=== PATIENT | female | born 1955 | race Caucasian/White ===

== ENCOUNTER → 2017-01-28 | Outpatient (CLI) | payer OTHER ==
[2016-12-29 12:06] VITALS: BP 137/74
[~2017-01-28] MED LIST: CALC1TAB PO; DESM10SP6 NS; FOLI1TAB35 PO; FURO20TA3 PO; HYDR-3074 PO; HYDR10TA PO; LEVO88TA4 PO; METO-313 PO; METO100T11 PO; MIRA50TA PO; WHEA1POW5 PO
--- NOTE | 2017-01-28 11:19 | RAD ---
Left chest wall ultrasound, 01/28/2017: History: Lump The area of clinical concern in the upper chest wall near the midline was scanned. No cystic or solid mass was identified. If clinical concern persists, CT scanning is suggested for further evaluation. Left axillary ultrasound, 01/28/2017: An additional separate area of reported palpable concern in the left axilla was carefully scanned. No cystic or solid mass is identified. Again, CT scanning may be useful for further evaluation, if clinically indicated.
--- NOTE | 2017-01-28 11:44 | RAD ---
Indication follow-up. Abnormal renal sonogram previously. Grayscale imaging targeted to the kidneys was performed. Note is made of a previous examination one month ago. The right kidney measures approximately 11.5 x 3.4 x 4.3 cm. No hydronephrosis or discrete mass is seen. The left kidney measures 10 x 4.8 x 4.6 cm and appears unremarkable showing no evidence of hydronephrosis or mass. A bladder diverticulum is noted as demonstrated on the CT examination 12/28/2016 IMPRESSION: No hydronephrosis or mass seen associated with either kidney. Urinary bladder diverticula
== END | disposition home or self-care (01) ==
LOC: US 13:08
PROVIDERS: ATTEND Family Medicine
DX: N63 Unspecified lump in breast (principal); N32.3 Diverticulum of bladder
CPT/HCPCS: 76604; 76641; 76770

== ENCOUNTER → 2017-02-03 | Outpatient (CLI) | payer OTHER ==
[2016-12-29 12:06] VITALS: BP 137/74
[~2017-02-03] MED LIST changes: +IOHEXOL 300 MG/ML 75 ML VIAL IV ONE
--- NOTE | 2017-02-03 10:07 | RAD ---
CT chest with contrast 02/03/2017 at 0900 hours Indication: Left-sided anterior chest wall mass Comparison: CT abdomen/pelvis 12/28/2016 Technique: Multiple axial CT images of the chest were obtained after the administration of intravenous contrast. Coronal and sagittal reformats are provided. 60 mL of Omnipaque 300 was administered intravenously. Findings: Right thyroid lobe has a 12 millimeter nodule in the inferior gland. There are no enlarged axillary, mediastinal or hilar lymph nodes. Heart size is within normal limits. Thoracic aorta is normal in course and caliber. No pericardial effusion. There are no pulmonary infiltrates or pleural effusions. No suspicious noncalcified pulmonary nodules. Healing left anterolateral rib fractures identified from ribs 3 through 6. No pneumothorax. A large hiatal hernia is present. Nephrogram phase of the kidneys limits evaluation, however there is no definite hypoperfusion at this time. Impression: 1. Healing left-sided anterolateral third through sixth rib fractures. Correlated with recent traumatic injury. No overlying hematoma is present. 2. Large hiatal hernia, stable. 3. 12 mm hypodense nodule in the inferior right thyroid gland. This may be further assessed with thyroid ultrasound. PQRS Compliance Statement: One or more of the following individualized dose reduction techniques were utilized for this examination: 1. Automated exposure control 2. Adjustment of the mA and/or kV according to patient size 3. Use of iterative reconstruction technique
== END | disposition home or self-care (01) ==
LOC: CT 08:37
PROVIDERS: ATTEND Nurse Practitioner
DX: R22.2 Localized swelling, mass and lump, trunk (principal)
CPT/HCPCS: 71260; Q9967

== ENCOUNTER → 2017-02-21 | Outpatient (CLI) | payer OTHER ==
[2016-12-29 12:06] VITALS: BP 137/74
[~2017-02-21] MED LIST changes: -IOHEXOL 300 MG/ML 75 ML VIAL IV ONE
--- NOTE | 2017-02-21 08:52 | RAD ---
Thyroid ultrasound 02/21/2017 Clinical indication: Possible thyroid nodule. Comparison: CT chest February 03, 2017. Findings: Right lobe of the thyroid measures 3.6 x 1.2 x 1.2 cm. Maximal AP thickness of the isthmus is 0.3 cm. Left lobe of the thyroid measures 3.3 x 1.3 x 0.9 cm. There is no discrete thyroid nodule. Impression: Normal sonographic appearance of the thyroid without discrete nodule.
== END | disposition home or self-care (01) ==
LOC: US 07:51
PROVIDERS: ATTEND Nurse Practitioner
DX: E04.1 Nontoxic single thyroid nodule (principal)
CPT/HCPCS: 76536

== ENCOUNTER → 2017-03-17 | Outpatient (CLI) | payer OTHER ==
[2016-12-29 12:06] VITALS: BP 137/74
--- NOTE | 2017-03-17 16:36 | RAD ---
Bilateral lower extremity venous ultrasound, 03/17/2017 History: Bilateral leg pain and swelling Duplex evaluation of the deep veins in the lower extremities was performed including grayscale, color-flow and spectral Doppler analysis. The femoral and popliteal veins demonstrate normal compressibility and normal responses to distal augmentation maneuvers. Color imaging of those vessels shows no evidence of intraluminal clot. The visualized deep veins in both calves are patent. IMPRESSION: There is no sonographic evidence of deep vein thrombosis in either lower extremity.
== END | disposition home or self-care (01) ==
LOC: US 14:01
PROVIDERS: ATTEND Nurse Practitioner
DX: M79.604 Pain in right leg (principal); M79.605 Pain in left leg; M79.89 Other specified soft tissue disorders
CPT/HCPCS: 93970

== ENCOUNTER 2017-06-18 19:38 | Emergency (ER) | payer OTHER ==
[~2017-06-18] VITALS: Ht 162.6 cm; Wt 87.1 kg
[~2017-06-18 19:38] MED LIST changes: +METO-247 PO; -METO100T11 PO
--- NOTE | 2017-06-18 19:51 | PHYS DOC ---
Past Medical History Past Medical History: Hypertension, Hypothyroid Past Surgical History: Other Additional Past Surgical Histo: unknown at this time, pt is non verbal Alcohol Use: None Drug Use: None Adult General Chief Complaint Chief Complaint: HEADACHE HPI HPI Patient is a 62 year old female presenting to the emergency department for evaluation of multiple complaints including cough congestion runny nose headache generalized malaise and fatigue. All of the symptoms have been going on for approximately one week and she says her cough is productive of a yellowish sputum. She says that she has been taking ibuprofen and Tylenol for pain but her headache is quite concerning to her she says that she has a history of a brain tumor and traumatic brain injury. Patient denies any fevers chills nausea vomiting neck stiffness worsening confusion unilateral weakness numbness or tingling. Patient is in no obvious distress with normal vital signs. Review of Systems Review of Systems Constitutional: Denies fever or chills [] Eyes: Denies change in visual acuity, redness, or eye pain [] HENT: + nasal congestion, sore throat [] Respiratory: + cough. No shortness of breath [] Cardiovascular: No additional information not addressed in HPI [] GI: Denies abdominal pain, nausea, vomiting, bloody stools or diarrhea [] : Denies dysuria or hematuria [] Musculoskeletal: Denies back pain or joint pain [] Integument: Denies rash or skin lesions [] Neurologic: + headache. No focal weakness or sensory changes [] All other systems were reviewed and found to be within normal limits, except as documented in this note. Current Medications Current Medications Current Medications Medications (Trade) Dose Ordered Sig/Nidia Start Time Stop Time Status Last Admin Dose Admin Acetaminophen/ Hydrocodone Bitart (Lortab 5/325) 1 tab 1X ONCE 06/18/17 20:15 06/18/17 20:16 DC Albuterol/ Ipratropium (Duoneb) 3 ml 1X ONCE 06/18/17 20:15 06/18/17 20:16 DC 06/18/17 20:27 3 ML Dexamethasone (Decadron) 6 mg [id number] 06/18/17 20:15 Allergies Allergies Allergies Coded Allergies Type Severity Reaction Last Updated Verified codeine Allergy Intermediate Hives 06/18/17 Yes Physical Exam Physical Exam Constitutional: Well developed, well nourished, no acute distress, non-toxic appearance. [] HENT: Normocephalic, atraumatic, bilateral external ears normal, oropharynx moist, no oral exudates, nose normal. [] Eyes: PERRLA, EOMI, conjunctiva normal, no discharge. [] Neck: Normal range of motion, no tenderness, supple, no stridor. [] Cardiovascular:Heart rate regular rhythm, no murmur [] Lungs & Thorax: Bilateral breath sounds clear to auscultation [] Abdomen: Bowel sounds normal, soft, no tenderness, no masses, no pulsatile masses. [] Skin: Warm, dry, no erythema, no rash. [] Back: No tenderness, no CVA tenderness. [] Extremities: No tenderness, no cyanosis, no clubbing, ROM intact, no edema. [] Neurologic: Alert and oriented X 3, normal motor function, normal sensory function, no focal deficits noted. [] Current Patient Data Vital Signs Vital Signs Date Time Temp Pulse Resp B/P (MAP) Pulse Ox O2 Delivery O2 Flow Rate FiO2 06/18/17 20:31 Room Air 06/18/17 20:28 99 06/18/17 19:50 98.4 94 22 127/61 (83) 98.4 EKG EKG [] Radiology/Procedures Radiology/Procedures EXAM: Head CT without contrast. HISTORY: Headache. TECHNIQUE: Computed tomographic images of the head were obtained without contrast. *One or more of the following individualized dose reduction techniques were utilized for this examination: 1. Automated exposure control. 2. Adjustment of the mA and/or kV according to patient size. 3. Use of iterative reconstruction technique. COMPARISON: 12/28/2016. FINDINGS: There are stable right frontotemporal craniotomy changes. There is hypodensity within the cerebral white matter, likely due to chronic small vessel disease. There is cerebral and cerebellar volume loss. There is no acute or subacute hemorrhage. There is no mass effect or midline shift. There is no hydrocephalus. There is an expanded and empty or partially empty sella. There is moderate left maxillary sinus mucosal thickening with a small air-fluid level. There is moderate ethmoid sinus mucosal thickening. The mastoid air cells are clear. There is a stable tiny focus of fat along the posterior falx IMPRESSION: 1. No acute intracranial finding. 2. Subtle areas of hypodensity within the cerebral white matter, likely due to chronic small vessel disease. 3. Stable right frontotemporal craniotomy changes. 4. Stable expanded and empty or partially empty sella. 4. Left maxillary and bilateral ethmoid sinus disease. Electronically signed by: Olivia Gonzalez MD (06/18/2017 8:34 PM) [facility] DICTATED and SIGNED BY: OLIVIA GONZALEZ MD DATE: 06/18/17 2030 Course & Med Decision Making Course & Med Decision Making Patient presenting to the emergency department for evaluation of upper respiratory symptoms. I did not see any signs of pneumonia on chest x-ray but she does have sinus disease on her head CT. Patient appears well with normal vital signs benign physical exam and workup so she'll be discharged with instructions to use ibuprofen and Nasonex [id number] in addition to prescription [place] albuterol and Zithromax follow with her primary care provider in 3-5 days and come back to the ED sooner with worsening pain fevers vomiting or other general concerns. Patient aware and agreeable with plan and verbalized understanding of the above instructions. Dragon Disclaimer Dragon Disclaimer This electronic medical record was generated, in whole or in part, using a voice recognition dictation system. Departure Departure Impression: Primary Impression: URI (upper respiratory infection) Additional Impressions: Sinusitis Headache Disposition: 01 HOME, SELF-CARE Condition: STABLE Referrals: WYATT FULLER (PCP) Patient Instructions: Upper Respiratory Infection, Adult Additional Instructions: TAKE 400MG OF IBUPROFEN EVERY 6 HOURS AND THE NORCO FOR BREAKTHROUGH PAIN. USE OTC NASONEX FOR YOUR SINUS CONGESTION. FOLLOW WITH YOUR PCP IN 3-5 DAYS TO ENSURE IMPROVEMENT AND COME BACK TO THE ED SOONER WITH ANY NEW OR WORSENING PAIN , SOA, OR OTHER GENERAL CONCERNS. THANK YOU! Scripts Azithromycin (ZITHROMAX) 250 Mg Tablet 1 PKG PO UD, #6 TAB Prov: DANUTA GREEN DO 06/18/17 Albuterol Sulfate (PROAIR HFA INHALER) 8.5 Gm Hfa.aer.ad 1 PUFF INH Q4HRS Y for SHORTNESS OF BREATH, #1 INHALER 0 Refills Prov: DANUTA GREEN DO 06/18/17 Hydrocodone/Apap 5-325 (NORCO 5-325 TABLET) 1 Each Tablet 1 TAB PO PRN Q6HRS Y for PAIN, #14 TAB 0 Refills Prov: DANUTA GREEN DO 06/18/17 Problem Qualifiers Primary Impression: URI (upper respiratory infection) URI type: unspecified URI Qualified Codes: J06.9 - Acute upper respiratory infection, unspecified DANUTA GREEN DO Jun 18, 2017 19:51
[2017-06-18] MEDS ORDERED: DEXAMETHASONE 4 MG TABLET PO SCH (20:15)
[2017-06-18] MEDS ORDERED: IPRATRPIUM/ALBUTEROL 0.5/2.5MG 3 ML NEBU. NEB ONE (20:15)
[2017-06-18] MEDS ORDERED: HYDROcodone/APAP 5/325MG 1 TAB TABLET PO ONE (20:15)
--- NOTE | 2017-06-18 20:37 | RAD ---
EXAM: Head CT without contrast. HISTORY: Headache. TECHNIQUE: Computed tomographic images of the head were obtained without contrast. *One or more of the following individualized dose reduction techniques were utilized for this examination: 1. Automated exposure control. 2. Adjustment of the mA and/or kV according to patient size. 3. Use of iterative reconstruction technique. COMPARISON: 12/28/2016. FINDINGS: There are stable right frontotemporal craniotomy changes. There is hypodensity within the cerebral white matter, likely due to chronic small vessel disease. There is cerebral and cerebellar volume loss. There is no acute or subacute hemorrhage. There is no mass effect or midline shift. There is no hydrocephalus. There is an expanded and empty or partially empty sella. There is moderate left maxillary sinus mucosal thickening with a small air-fluid level. There is moderate ethmoid sinus mucosal thickening. The mastoid air cells are clear. There is a stable tiny focus of fat along the posterior falx IMPRESSION: 1. No acute intracranial finding. 2. Subtle areas of hypodensity within the cerebral white matter, likely due to chronic small vessel disease. 3. Stable right frontotemporal craniotomy changes. 4. Stable expanded and empty or partially empty sella. 4. Left maxillary and bilateral ethmoid sinus disease. Electronically signed by: Olivia Gonzalez MD (06/18/2017 8:34 PM) [facility]
[2017-06-18] MEDS ORDERED: PROAIR HFA8.5 GM INH (20:56)
[2017-06-18] MEDS ORDERED: AZIT250T PO (20:56)
[2017-06-18] MEDS ORDERED: HYDR-971 PO (20:56)
[2017-06-18 21:22] VITALS: BP 111/68
--- NOTE | 2017-06-19 07:45 | RAD ---
Two view chest History:Cough for one week. PA and lateral views of the chest are submitted. Comparison: 12/02/2014 Findings: There is no significant infiltrate, pleural effusion, or pneumothorax. The pericardial cardiac silhouette is within normal limits in size. There is moderate to large hiatal hernia. Impression: 1. There is no significant infiltrate. 2. There is moderate to large hiatal hernia.
== END 2017-06-18 21:52 | disposition home or self-care (01) ==
LOC: ER 19:38
DX: J06.9 Acute upper respiratory infection, unspecified (principal); J32.9 Chronic sinusitis, unspecified; R51 Headache; E03.9 Hypothyroidism, unspecified; I10 Essential (primary) hypertension; Z87.820 Personal history of traumatic brain injury; Z88.5 Allergy status to narcotic agent
CPT/HCPCS: 70450; 71020; 94250; 94640; 99284; J7620; J8540